=== PATIENT | male | born 1970 | race Caucasian/White ===

== ENCOUNTER 2025-08-06 07:33 | Day surgery (SDC) | payer OTHER ==
[2025-08-06] MEDS ORDERED: BUPIVACAINE 0.5 % PF 150 MG/30 ML VIAL ONE (08:01)
[2025-08-06] MEDS ORDERED: LIDOCAINE 1%-EPI 1:100,000 20 ML VIAL ONE (08:01)
[2025-08-06] MEDS ORDERED: ANESTHESIA TRAY IN PYXIS 1 EA TRAY MC ONE (08:01)
[2025-08-06] MEDS ORDERED: FENTANYL PF 100MCG/2ML AMPUL ONE (08:40)
[2025-08-06] MEDS ORDERED: SUCCINYLCHOLINE CHLORIDE 20 MG/ML VIAL ONE (08:41)
[2025-08-06] MEDS ORDERED: FAMOTIDINE/PF INJ 20 MG/2 ML VIAL IV ONE (08:41)
[2025-08-06] MEDS ORDERED: ROCURONIUM BROMIDE 50 MG/5 ML ONE (08:41)
[2025-08-06] MEDS ORDERED: SEVOFLURANE 250 ML BOTTLE IH ONE (08:52)
[2025-08-06] MEDS ORDERED: ESMOLOL INJ 100 MG/10 ML VIAL IV ONE (10:09)
== END 2025-08-06 12:15 | disposition home or self-care (01) ==
LOC: DS 07:33
PROVIDERS: ATTEND Surgery
DX: K40.90 Unilateral inguinal hernia, without obstruction or gangrene, not specified as recurrent (principal); B18.2 Chronic viral hepatitis C; E66.9 Obesity, unspecified; M50.123 Cervical disc disorder at C6-C7 level with radiculopathy; F17.200 Nicotine dependence, unspecified, uncomplicated; F41.9 Anxiety disorder, unspecified; Z68.37 Body mass index [BMI] 37.0-37.9, adult; Z98.890 Other specified postprocedural states; Z79.899 Other long term (current) drug therapy
CPT/HCPCS: 49505; C1781; J0330; J0690; J1308; J2405; J2704; J2765; J3010; J3490; J7030; 88302-TC